=== PATIENT | male | born 1960 | race Two or more races ===

== ENCOUNTER 2022-10-13 16:30 | Emergency (ER) | payer MEDICAID ==
[~2022-10-13] VITALS: Ht 185.4 cm; Wt 72.7 kg
[2022-10-13] MEDS ORDERED: AMOX1TAB16 PO (17:15)
[2022-10-13] MEDS ORDERED: IBUP-1492 PO (17:15)
[2022-10-13] MEDS ORDERED: KETOROLAC TROMETHAMINE 30 MG/ML VIAL IM ONE (18:00)
[2022-10-13 18:07] VITALS: BP 141/88
== END 2022-10-13 18:21 | disposition home or self-care (01) ==
LOC: EMS 16:32
DX: K02.9 Dental caries, unspecified (principal)
CPT/HCPCS: 99283; 96372; J1885

== ENCOUNTER 2022-11-18 13:28 | Emergency (ER) | payer MEDICAID ==
[~2022-11-18] VITALS: Ht 162.6 cm; Wt 68.2 kg
[~2022-11-18 13:28] MED LIST: AMOX1TAB16 PO; IBUP-1492 PO
[2022-11-18 13:33] VITALS: BP 155/84; PULSE 60; RESP 16; TEMP 97.7
[2022-11-18] MEDS ORDERED: IBUP-1554 PO (14:48)
[2022-11-18] MEDS ORDERED: HYDR-4723 PO (14:48)
[2022-11-18] MEDS ORDERED: IBUPROFEN 600 MG TABLET PO ONE (15:00)
[2022-11-18] MEDS ORDERED: HYDROCODONE/ACETAMINOPHEN 5-325 MG TABLET PO ONE (15:00)
[2022-11-18] MEDS ORDERED: HYDR-4072 PO (16:46)
== END 2022-11-18 15:11 | disposition home or self-care (01) ==
LOC: EMS 13:31
DX: K04.7 Periapical abscess without sinus (principal)
CPT/HCPCS: 99283